=== PATIENT | male | born 1955 | race Caucasian/White ===

== ENCOUNTER 2022-01-27 16:54 | Inpatient (IN) ==
[2022-01-27 17:40] LABS: Basophils # 0.1 K/mcL (0.0-0.2); Basophils % 1.1 %; Eosinophils # 0.1 K/mcL (0.0-0.6); Eosinophils % 1.5 %; Hematocrit 44.7 % (37.5-50.1); Hemoglobin 15.4 g/dL (12.9-16.9); Immature Granulocytes % 0.5 % (0-4); Lymphocytes # 1.9 K/mcL (0.6-4.6); Lymphocytes % 27.8 %; Mean Corpuscular HGB Conc 34.5 g/dL (31.6-35.5); Mean Corpuscular Hemoglobin 31.7 pg (28.0-33.3); Mean Platelet Volume 10.3 fL (9.4-12.4); Monocytes # 0.5 K/mcL (0.0-1.3); Monocytes % 8.1 %; Neutrophils # 4.1 K/mcL (1.6-8.9); Platelet Count 182 K/mcL (140-400); Red Blood Count 4.86 M/mcL (4.19-5.50); Red Cell Distribution Width 13.2 % (11.5-14.5); White Blood Count 6.7 K/mcL (4.3-11.1)
[2022-01-27 17:48] LABS: Prothrombin Time 11.2 Seconds (9.4-12.1)
[2022-01-27 17:51] LABS: Activated Partial Thrombo Time 39.4 Seconds (26.0-36.0)
[2022-01-27 18:07] LABS: BUN/Creatinine Ratio 15 (6-26); Blood Urea Nitrogen 21 mg/dL (8-23); Calcium 9.6 mg/dL (8.6-10.3); Carbon Dioxide 24 mEq/L (23-29); Chloride 104 mEq/L (98-107); Glucose 97 mg/dL (70-105); Osmolality,Calculated 283 (280-300); Potassium 4.4 mEq/L (3.5-5.1); Sodium 135 mEq/L (136-145); eGFR For African Americans > 60 (> 60); eGFR For Non-African Americans 51 (> 60)
[2022-01-27 18:09] LABS: Heparin anti-factor XA UFH < 0.04 IU/mL (0.30-0.70)
[2022-01-27 18:11] LABS: Troponin I 0.56 ng/mL (< 0.04)
[2022-01-27] MEDS ORDERED: Nitroglycerin 0.4 MG TAB.SUBL SL PRN (18:27)
[2022-01-27] MEDS ORDERED: *HR* Heparin 5,000 UNIT/ML VIAL IVP PRN ×2 (18:41)
[2022-01-27] MEDS ORDERED: *HR* Heparin 5,000 UNIT/ML VIAL IVP ONE (18:41)
[2022-01-27] MEDS ORDERED: Heparin 25,000UNIT/250ML 1/2NS 25,000 UNIT/250 ML IV.SOLN IVC SCH (18:45)
[2022-01-27] MEDS ORDERED: Perflutren Lipid Microsphere 1.3 ML in 0.9 % Sodium Chloride 8.7 ML IVP PRN (20:08)
[2022-01-27] MEDS ORDERED: Morphine Sulfate 2 MG/ML SYRINGE IVP PRN (20:14)
[2022-01-27] MEDS ORDERED: Naloxone 0.4 MG/ML INJ IVP PRN (20:16)
[2022-01-27] MEDS ORDERED: Acetaminophen 325 MG TABLET PO PRN (20:16)
[2022-01-27] MEDS ORDERED: Ondansetron 4 MG/2 ML VIAL IVP PRN (20:16)
[2022-01-28] MEDS ORDERED: Melatonin 3 MG TABLET PO ONE (00:56)
[2022-01-28] MEDS ORDERED: Morphine Sulfate 2 MG/ML SYRINGE IVP ONE (01:25)
[2022-01-28 01:32] LABS: Hematocrit 41.7 % (37.5-50.1); Hemoglobin 14.2 g/dL (12.9-16.9); Mean Corpuscular HGB Conc 34.1 g/dL (31.6-35.5); Mean Corpuscular Hemoglobin 31.6 pg (28.0-33.3); Mean Corpuscular Volume 92.7 fL (83.0-100.0); Mean Platelet Volume 10.5 fL (9.4-12.4); Platelet Count 171 K/mcL (140-400); Red Cell Distribution Width 13.3 % (11.5-14.5); White Blood Count 6.4 K/mcL (4.3-11.1)
[2022-01-28 01:49] LABS: Chol/HDL Ratio 5.6 (0-4.9); Magnesium 2.2 mg/dL (1.6-2.6); Potassium 3.9 mEq/L (3.5-5.1)
[2022-01-28 01:55] LABS: Troponin I 1.14 ng/mL (< 0.04)
[2022-01-28 02:06] LABS: Thyroid Stimulating Hormone 0.424 mcIU/mL (0.340-5.600)
[2022-01-28 03:09] LABS: Estimated Average Glucose 94 mg/dl; Hemoglobin A1C 4.9 %
[2022-01-28] MEDS ORDERED: 0.9 % Sodium Chloride 1,000 ML IVC SCH (08:45)
[2022-01-28] MEDS: Aspirin Enteric Coated 81 MG Tablet PO SCH (09:53)
[2022-01-28] MEDS ORDERED: *HR* Heparin 10,000 UNIT/10 ML VIAL ONE (13:29)
[2022-01-28] MEDS ORDERED: 0.9 % Sodium Chloride 1,000 ML ONE (13:29)
[2022-01-28] MEDS ORDERED: Heparin 1,000 UNITS/500 mL 500 ML ONE ×2 (13:30→14:40)
[2022-01-28] MEDS ORDERED: Iopamidol - 370 200 ML INFUS..BTL ONE (13:30)
[2022-01-28] MEDS ORDERED: Nitroglycerin 1,000 MCG/5 ML VIAL IV ONE (13:30)
[2022-01-28] MEDS ORDERED: *HR* FentaNYL (PF) 100 MCG/2 ML VIAL ONE (13:38)
[2022-01-28] MEDS ORDERED: *HR* Midazolam HCl 2 MG/2 ML VIAL ONE (13:38)
[2022-01-28] MEDS ORDERED: *HR* Ticagrelor 90 MG TABLET ONE ×2 (14:52→15:27)
[2022-01-28] MEDS: 0.9 % Sodium Chloride 1,000 ML IVC SCH (16:59)
[2022-01-28] MEDS ORDERED: hydrOXYzine pamoate 25 MG CAPSULE PO PRN (17:48)
[2022-01-28] MEDS: *HR* Ticagrelor 90 MG TABLET PO SCH (20:11)
[2022-01-28] MEDS: Topiramate 25 MG TABLET PO SCH (20:12)
[2022-01-28] MEDS: RIBOFLAVIN 100 MG PO SCH (20:15)
[2022-01-28] MEDS ORDERED: Mirtazapine 15 MG TABLET PO SCH (21:00)
[2022-01-29 03:30] LABS: Hematocrit 39.8 % (37.5-50.1); Hemoglobin 13.5 g/dL (12.9-16.9); Mean Corpuscular HGB Conc 33.9 g/dL (31.6-35.5); Mean Corpuscular Hemoglobin 31.9 pg (28.0-33.3); Mean Corpuscular Volume 94.1 fL (83.0-100.0); Mean Platelet Volume 10.8 fL (9.4-12.4); Platelet Count 169 K/mcL (140-400); Red Blood Count 4.23 M/mcL (4.19-5.50); Red Cell Distribution Width 13.3 % (11.5-14.5); White Blood Count 8.2 K/mcL (4.3-11.1)
[2022-01-29] MEDS: 0.9 % Sodium Chloride 1,000 ML IVC SCH (03:38)
[2022-01-29 04:05] LABS: BUN/Creatinine Ratio 15 (6-26); Blood Urea Nitrogen 22 mg/dL (8-23); Carbon Dioxide 22 mEq/L (23-29); Chloride 109 mEq/L (98-107); Glucose 90 mg/dL (70-105); Osmolality,Calculated 293 (280-300); Potassium 3.7 mEq/L (3.5-5.1); Sodium 140 mEq/L (136-145); eGFR For African Americans > 60 (> 60); eGFR For Non-African Americans 50 (> 60)
[2022-01-29] MEDS: Aspirin Enteric Coated 81 MG Tablet PO SCH (08:40)
[2022-01-29] MEDS: *HR* Ticagrelor 90 MG TABLET PO SCH (08:41)
[2022-01-29] MEDS: Topiramate 25 MG TABLET PO SCH (08:41)
[2022-01-29] MEDS: RIBOFLAVIN 100 MG PO SCH ×2 (08:42→12:48)
[2022-01-29 11:57] VITALS: BP 100/66; PULSE 68; TEMP 97.4; O2SAT 100
== END 2022-01-29 14:14 | disposition home or self-care (01) | DRG 247 ==
LOC: EMEROOARM 16:54 → 2ANU 16:54 → SUATTDRO 19:16 → 2ANU 20:00
PROVIDERS: ADMIT Family Medicine; ATTEND Family Medicine